=== PATIENT | male | born 1950 | race Caucasian/White ===

== ENCOUNTER 2020-02-25 09:52 | Emergency (ER) | payer OTHER ==
--- OUTSIDE RECORDS SUMMARY | 2020-02-25 09:54 | XMS REPORT | Continuity of Care Document ---
:1950 Author Organization [facility] t Address [address] [place] [address] [place] [address] Care Team Providers Name Role Phone Ganesh Romo MD Primary Care Physician Doctor Unassigned, Name Attending Clinician Unavailable Grant A[place] Attending Clinician HUNTER MINER Attending Clinician Unavail able HUNTER MINER Admitting Clinician Unavail able Problems Condition Condition Condition Status Onset Resolution Last Treating Co mments Source Name Details Category Date Date Treatment Clinician Date Back pain Back pain [facility] Stress Stress Disease [facility] ICH ICH Disease Active [facility] (intracere (intracere 11-04 Lori kes - bral bral 00:00: Medical hemorrhage hemorrhage 00 Ce nter ) ) Thalamic Thalamic Disease [facility] Center Uncontroll Uncontroll Disease Active [facility] - hypertensi hypertensi 00:00: Me dical on on 00 Center Type 2 Type [address] [facility] diabetes diabetes 11-04 [facility] - mellitus mellitus 00:00: Medica l 00 Center 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 N.KSaiA. Active Info Not 2015-02 Yonis eric Available 0-03 l 00:00: [place] 00 Family History Family Member Diagnosis Comments Start Date Stop Date Source Unknown Family Family History 2015-11-28 2015-11-28 Memori al [place] Member 02:46:41 02:46:41 Social History Social Habit Start Date Stop Date Quantity Comments Source Sex Assigned At [facility] Tobacco use and exposure 2016-11-04 2016-11-04 Never used [facility] - 00:00:00 00:00:00 [facility] Alcohol intake 2016-11-04 2016-11-04 Current [facility] es - 00:00:00 00:00:00 non-drinker of Medical nter alcohol (finding) PneumoccalVaccine 2015-11-26 2015-11-26 Memoria l 00:00:00 00:00:00 [place] Smoking Status Start Date Stop Date Source Former smoker 2016-11-04 00:00:00 2016-11-04 00:00:00 [facility] Medications Ordered Filled Start Stop Current Ordering Indication Dosage Frequency Signature Comments Components Source Medication Medication Date Date Medication? Clinician (SIG) Name Name SITagliptin Yes 1{tbl} Take [address] -metFORMIN 9-14 tablet by Luke s - (JANUMET) 12:25: mouth 2 Medic al 50-500 mg 33 (two) Center per tablet times daily with breakfast and dinner. losartan Yes 100mg QD Take [address] (COZAAR) 9-14 mg by [facility] - 100 MG 12:25: mouth Medical tablet 33 daily. Center albuterol Yes 4{puff} Inhale [address] HFA 9-14 puffs by [facility] - (VENTOLIN 12:25: mouth via Med ical HFA) 90 33 inhaler Center mcg/actuati every 6 on inhaler (six) hours as needed for Wheezing. glimepiride Yes 4mg Take [address] (AMARYL) 4 9-14 by mouth 2 Xochilt es - MG tablet 12:25: (two) Medical 33 times Center daily before meals. simvastatin 2015-02 Yes MAKAYLA 1 tab(s) Memoria 0-05 SAJI l 02:46: [place] 41 Janumet 2015-02 Yes MAKAYLA 1 tab(s) M emoria 0-05 SAJI l 02:46: [place] 41 losartan 2015-02 Yes MAKAYLA 1 tab(s) Memoria 0-05 SAJI l 02:46: [place] 41 glimepiride 2015-02 Yes MAKAYLA 1 tab(s) Memoria 0-05 SAJI l 02:46: [place] 41 Invokana 2015-02 Yes MAKAYLA 1 tab(s) Memoria 0-05 SAJI l 02:46: [place] 41 Plavix 2015-02 Yes MAKAYLA 1 tab(s) Me moria 0-05 SAJI l 02:46: [place] 41 Vital Signs Vital Name Observation Time Observation Value Comments Source Weight 2015-11-26 20:00:00 [facility] Diastolic (mm Hg) 2015-11-26 20:00:00 Mem oridat Haas Systolic (mm Hg) 2015-11-26 20:00:00 Yonis Haas Procedures This patient has no known procedures. Encounters Start End Encounter Admission Attending Care Care Encounter Source Date/Time Date/Time Type Type Clinicians Facility Department ID 2020-01-08 2020-01-08 Orders Doctor TRAYLOR [id number] 00:00:00 00:00:00 Only Unassigned, CAMACHO [id number] [facility] [id number] [id number] 2019-12-27 2019-12-27 Orders Doctor TRAYLOR [id number] 00:00:00 00:00:00 Only Unassigned, [place]ACH[place] [id number] [facility] [id number] 2019-11-30 2019-11-30 Office Burns [facility] [id number] 11:04:29 11:41:15 Visit Nanci Lee [id number] Bin [id number] S[place] [id number] [facility] 220 [facility] 2019-11-30 2019-11-30 Orders Doctor LAYTON [id number] 00:00:00 00:00:00 Only Unassigned, [place] [id number] [place] [facility] [id number] 2015-11-26 2015-11-26 Outpatient Makayla Makayla [id number] [facility] 15:00:00 15:00:00 B Saji Lennon MD, MD Results Test Description Test Time Test Comments Results Result Comments Source POCT-GLUCOSE METER 2016-11-06 07:54:00 Test Item Value Reference Range Interpretation Comme [facility] POC-GLUCOSE METER (BEAKER) (test 194 mg/dL 70-110 H TESTED AT [facility] [address] [facility] code = 1538) [facility] 7703 0 CBC W/PLT COUNT & AUTO [id number] 05:12:00 Test Item Value Reference Range Interpretation Comments WHITE BLOOD CELL COUNT (BEAKER) 6.0 K/ L 3.5-10.5 (test code = 775) RED BLOOD CELL COUNT (BEAKER) 4.79 M/ L 4.63-6.08 (test code = 761) HEMOGLOBIN (BEAKER) (test code = 14.4 GM/DL 13.7-17.5 410) HEMATOCRIT (BEAKER) (test code = 43.0 % 40.1-51.0 411) MEAN CORPUSCULAR VOLUME (BEAKER) 89.8 fL 79.0-92.2 (test code = 753) MEAN CORPUSCULAR HEMOGLOBIN 30.1 pg 25.7-32.2 (BEAKER) (test code = 751) MEAN CORPUSCULAR HEMOGLOBIN CONC 33.5 GM/DL 32.3-36.5 (BEAKER) (test code = 752) RED CELL DISTRIBUTION WIDTH 12.6 % 11.6-14.4 (BEAKER) (test code = 412) PLATELET COUNT (BEAKER) (test 160 K/CU MM 150-450 code = 756) MEAN PLATELET VOLUME (BEAKER) 11.4 fL 9.4-12.4 (test code = 754) NUCLEATED RED BLOOD CELLS 0 /100 WBC 0-0 (BEAKER) (test code = 413) NEUTROPHILS RELATIVE PERCENT 65 % (BEAKER) (test code = 429) LYMPHOCYTES RELATIVE PERCENT 23 % (BEAKER) (test code = 430) MONOCYTES RELATIVE PERCENT 9 % (BEAKER) (test code = 431) EOSINOPHILS RELATIVE PERCENT 3 % (BEAKER) (test code = 432) BASOPHILS RELATIVE PERCENT 1 % (BEAKER) (test code = 437) NEUTROPHILS ABSOLUTE COUNT 3.86 K/ L 1.78-5.38 (BEAKER) (test code = 670) LYMPHOCYTES ABSOLUTE COUNT 1.34 K/ L 1.32-3.57 (BEAKER) (test code = 414) MONOCYTES ABSOLUTE COUNT (BEAKER) 0.55 K/ L 0.30-0.82 (test code = 415) EOSINOPHILS ABSOLUTE COUNT 0.15 K/ L 0.04-0.54 (BEAKER) (test code = 416) BASOPHILS ABSOLUTE COUNT (BEAKER) 0.03 K/ L 0.01-0.08 (test code = 417) IMMATURE GRANULOCYTES-RELATIVE 0 % 0-1 PERCENT (BEAKER) (test code = 2801) [id number] 05:02:00 Test Item Value Reference Range Interpretation Comments PHOSPHORUS (BEAKER) (test code = 2.4 mg/dL 2.3-4.7 604) [id number] 05:02:00 Test Item Value Reference Range Interpretation Comments MAGNESIUM (BEAKER) (test code = 2.0 mg/dL 1.6-2.6 627) BASIC METABOLIC [id number] 05:02:00 Test Item Value Reference Range Interpretation Comments SODIUM (BEAKER) 139 meq/L 136-145 (test code = 381) POTASSIUM (BEAKER) 3.4 meq/L 3.5-5.1 L (test code = 379) CHLORIDE (BEAKER) 107 meq/L 98-107 (test code = 382) CO2 (BEAKER) (test 23 meq/L 22-29 code = 355) BLOOD UREA NITROGEN 9 mg/dL 7-21 (BEAKER) (test code = 354) CREATININE (BEAKER) 0.72 mg/dL 0.57-1.25 (test code = 358) GLUCOSE RANDOM 166 mg/dL 70-105 H ([facility]) (test code = 652) CALCIUM ([facility]) 9.1 mg/dL 8.4-10.2 (test code = 697) EGFR ([facility]) (test 109 mL/min/1.73 ESTIM ATED GFR IS code = 1092) sq m NOT ACCURATE CREATININE CLEARANCE IN PREDICTING GLOMERULAR FILTRATION RATE . ESTIMATED GFR I S NOT APPLICABLE FOR DIALYSIS PATIEN TS. POCT-GLUCOSE [id number] 00:42:00 Test Item Value Reference Range Interpretation Comments POC-GLUCOSE METER 147 mg/dL 70-110 H TESTED AT [place] [address] ([facility]) (test code = [facility] 1538) [id number] POCT-GLUCOSE [id number] 00:42:00 Test Item Value Reference Range Interpretation Comments POC-GLUCOSE METER 173 mg/dL 70-110 H TESTED AT [place] [address] ([facility]) (test code = [facility] 1538) [id number] POCT-GLUCOSE [id number] 17:04:00 Test Item Value Reference Range Interpretation Comments POC-GLUCOSE METER 200 mg/dL 70-110 H TESTED AT [place] [address] ([facility]) (test code = [facility] 1538) [address] HEMOGLOBIN [id number] 16:58:00 Test Item Value Reference Range Interpretation Comments HEMOGLOBIN A1C ([facility]) (test code = 7.3 % 4.3-6.1 H 368) POCT-GLUCOSE [id number] 12:15:00 Test Item Value Reference Range Interpretation Comments POC-GLUCOSE METER 189 mg/dL 70-110 H TESTED AT [place] [address] ([facility]) (test code = [facility] 1538) [id number] CBC W/PLT COUNT & AUTO [id number] 08:58:00 Test Item Value Reference Range Interpretation Comments WHITE BLOOD CELL COUNT ([facility]) 5.5 K/ L 3.5-10.5 (test code = 775) RED BLOOD CELL COUNT ([facility]) 4.74 M/ L 4.63-6.08 (test code = 761) HEMOGLOBIN ([facility]) (test code = 14.8 GM/DL 13.7-17.5 410) HEMATOCRIT ([facility]) (test code = 42.4 % 40.1-51.0 411) MEAN CORPUSCULAR VOLUME (BEAKER) 89.5 fL 79.0-92.2 (test code = 753) MEAN CORPUSCULAR HEMOGLOBIN 31.2 pg 25.7-32.2 (BEAKER) (test code = 751) MEAN CORPUSCULAR HEMOGLOBIN CONC 34.9 GM/DL 32.3-36.5 (BEAKER) (test code = 752) RED CELL DISTRIBUTION WIDTH 12.9 % 11.6-14.4 (BEAKER) (test code = 412) PLATELET COUNT (BEAKER) (test 200 K/CU MM 150-450 code = 756) MEAN PLATELET VOLUME (BEAKER) 11.0 fL 9.4-12.4 (test code = 754) NUCLEATED RED BLOOD CELLS 0 /100 WBC 0-0 (BEAKER) (test code = 413) NEUTROPHILS RELATIVE PERCENT 72 % (BEAKER) (test code = 429) LYMPHOCYTES RELATIVE PERCENT 16 % (BEAKER) (test code = 430) MONOCYTES RELATIVE PERCENT 9 % (BEAKER) (test code = 431) EOSINOPHILS RELATIVE PERCENT 3 % (BEAKER) (test code = 432) BASOPHILS RELATIVE PERCENT 1 % (BEAKER) (test code = 437) NEUTROPHILS ABSOLUTE COUNT 3.95 K/ L 1.78-5.38 (BEAKER) (test code = 670) LYMPHOCYTES ABSOLUTE COUNT 0.89 K/ L 1.32-3.57 L (BEAKER) (test code = 414) MONOCYTES ABSOLUTE COUNT (BEAKER) 0.49 K/ L 0.30-0.82 (test code = 415) EOSINOPHILS ABSOLUTE COUNT 0.14 K/ L 0.04-0.54 (BEAKER) (test code = 416) BASOPHILS ABSOLUTE COUNT (BEAKER) 0.03 K/ L 0.01-0.08 (test code = 417) IMMATURE GRANULOCYTES-RELATIVE 1 % 0-1 PERCENT (BEAKER) (test code = 2801) CT BRAIN WITHOUT IV CONTRAST - [id number] 07:14:00Reason for exam:->L-thalamic ICHFINAL REPORT CT head without contrast INDICATION: Left thalamic intracranial hemorrhage. TECHNIQUE: Contiguous axial images through the head without contrast on the portable CT un it. This exam was performed according to our departmental dose optimization program which includes automated exposure control, adjustment of the mA and/or kV according to patient size and/or use of iterative reconstruction technique. COMPARISON: None available FINDINGS:There is anteromedial left thalamic hyperdensity measuring up to 1.4 cm in keeping with hemorrhage. A thin rim of surrounding edema is suspected, but no remarkable mass effect is evident. There is nonspecific white matter hypoattenuation in keeping with microvascular ischemia with age indeterminate changes. Please note that CT is insensitive for early or small infarcts. Generalized volume loss and vascular calcifications are noted. There is no hydrocephalus or midline shift. There is minimal chronic sinus mucosal thickening. The mastoid air cells and orbits are unremarkable. The calvarium is intact. IMPRESSION: Left thalamic smallvolume hyperdense focus in keeping with hemorrhage, without remarkable mass effect. Comparison with recent imaging or short term CT follow up is advised to assess stability. Findings discussed with (neuro ICU) at 7:10 AM Signed: Denae Avila MDReport Verified Date/Time: 11/05/201607:14:49 Reading Location: [address] Neuro Reading Room POCT-GLUCOSE [id number] 06:25:00 Test Item Value Reference Range Interpretation Comments POC-GLUCOSE METER 194 mg/dL 70-110 H TESTED AT [facility] [address] (BEAKER) (test code = BRITT[place] 1538) [id number] 04:35:00 Test Item Value Reference Range Interpretation Comments PHOSPHORUS (BEAKER) (test code = 2.4 mg/dL 2.3-4.7 604) Once on admission and Daily AM afterwardsOnce on admission and Daily AM afterwardsOnce on admission and Daily AM [id number] 04:35:00 Test Item Value Reference Range Interpretation Comments MAGNESIUM (BEAKER) (test code = 1.9 mg/dL 1.6-2.6 627) Once on admission and Daily AM afterwardsOnce on admission and Daily AM afterwardsOnce on admission and Daily AM afterwardsBASIC METABOLIC PANEL 2016-11-05 04:35:00 Test Item Value Reference Range Interpretation Comments SODIUM (BEAKER) 139 meq/L 136-145 (test code = 381) POTASSIUM (BEAKER) 3.6 meq/L 3.5-5.1 (test code = 379) CHLORIDE (BEAKER) 106 meq/L 98-107 (test code = 382) CO2 (BEAKER) (test 27 meq/L 22-29 code = 355) BLOOD UREA NITROGEN 10 mg/dL 7-21 (BEAKER) (test code = 354) CREATININE (BEAKER) 0.76 mg/dL 0.57-1.25 (test code = 358) GLUCOSE RANDOM 184 mg/dL 70-105 H (BEAKER) (test code = 652) CALCIUM (BEAKER) 8.9 mg/dL 8.4-10.2 (test code = 697) EGFR (BEAKER) (test 102 mL/min/1.73 ESTIM ATED GFR IS code = 1092) sq m NOT ACCURATE CREATININE CLEARANCE IN PREDICTING GLOMERULAR FILTRATION RATE . ESTIMATED GFR I S NOT APPLICABLE FOR DIALYSIS PATIEN TS. Once on admission and Daily AM afterwardsOnce on admission and Daily AM afterwardsOnce on admission and Daily AM afterwardsPOCT-GLUCOSE [id number] 00:30:00 Test Item Value Reference Range Interpretation Comments POC-GLUCOSE METER 204 mg/dL 70-110 H TESTED AT [facility] 67[address] ([facility]) (test code = BR[place] 1538) [id number] PROTHROMBIN [id number] 19:35:00 Test Item Value Reference Range Interpretation Comments PROTIME (BEAKER) (test code = 16.6 seconds 11.7-14.7 H 759) INR (BEAKER) (test code = 370) 1.4 <=5.9 RECOMMENDED COUMADIN/WARFARIN INR THERAPY RANGESSTANDARD DOSE: 2.0 - 3.0 Includes: PROPHYLAXIS forvenous thrombosis, systemic embolization; TREATMENT for venous thrombosis and/or pulmonary embolus.HIGH RISK: Target INR is 2.5-3.5 for patients with mechanical heart valves.[id number] 19:35:00 Test Item Value Reference Range Interpretation Comments PARTIAL THROMBOPLASTIN TIME 29.2 seconds 22.5-36.0 (BEAKER) (test code = 760) HEPATIC FUNCTION [id number] 19:17:00 Test Item Value Reference Range Interpretation Comments TOTAL PROTEIN (BEAKER) (test code = 7.5 gm/dL 6.0-8.3 770) ALBUMIN (BEAKER) (test code = 1145) 4.2 g/dL 3.5-5.0 BILIRUBIN TOTAL (BEAKER) (test code 0.7 mg/dL 0.2-1.2 = 377) BILIRUBIN DIRECT ([facility]) (test 0.3 mg/dL 0.1-0.5 code = 706) ALKALINE PHOSPHATASE ([facility]) (test 96 U/L 40-150 code = 346) AST (SGOT) (BEAKER) (test code = 21 U/L 5-34 353) ALT (SGPT) (BEAKER) (test code = 25 U/L 6-55 347)
--- OUTSIDE RECORDS SUMMARY | 2020-02-25 09:54 | XMS REPORT | Continuity of Care Document ---
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 Ganglion Active Problem 11/28/2015 Mkaayla cyst of [place] finger of left hand Medications Medication Details Route Status Patient Ordering Order Source Instructions Provider Date simvastatin 1 tab(s) orally Active 10 mg orally WILLIAM Claire lotte once a day (at [place] bedtime) Janumet 1 tab(s) orally Active 500 mg-50 mg WILLIAM Thrashert e orally 2 times William a day losartan 1 tab(s) orally Active 100 mg orally WILLIAM Clairelo tte once a day William glimepiride 1 tab(s) orally Active 2 mg orally WILLIAM Clairel gigi once a day William Invokana 1 tab(s) orally Active 300 mg orally WILLIAM Clairelo tte once a day William Plavix 1 tab(s) orally Active 75 mg orally WILLIAM Thrashert e once a day William Allergies, Adverse Reactions, Alerts Substance Category Reaction Severity Reaction Status Date Comments S ource type Reported N.K.D.A. Adverse Info Not Adverse Active Alethea reyes Reaction Available Reaction 6 Catrachito igor Immunizations No Data Provided for This Section Results No Data Provided for This Section Pathology Reports No Data Provided for This Section Diagnostic Reports No Data Provided for This Section Consultation Notes No Data Provided for This Section Discharge Summaries No Data Provided for This Section History and Physicals No Data Provided for This Section Vital Signs Vital Sign Value Date Comments Source Weight 195 11/26/2015 Makayla Degroot nder Diastolic (mm Hg) 79 11/26/2015 Makaylaeric Lennon Systolic (mm Hg) 134 11/26/2015 Makayla sethi Encounters Location Location Encounter Encounter Reason Attending ADM AR Stat Source Details Type Number For Provider Date Date Visit Makayla Olguin TUMOR [id number] 11/25 11/25 C ramon Lennon THUMB [id number] Summer dunlap MD [id number] Procedures No Data Provided for This Section Assessment and Plan No Data Provided for This Section Plan of Care No Data Provided for This Section Social History Social History Date Source Social History ElementQualifiersDate Reported 11/26/2015 Makayla Lennon Pneumoccal Vaccine . Have you had a Pneumoccal Vaccine No Nov 26, 2015 Do you live alone? . No Nov 26, 2015 Flu Shot: . Yes Nov 26, 2015 Mammogram in last year: . N/A Nov 26, 2015 Dominant Hand . What is your dominant hand Right Nov 26, 2015 Bone Density: . Have you had a bone density test? When No Nov 26, 2015 Mold Car Pusher of an elderly or disabled person: . No Nov 26, 2015 Had a fall in the last year: . Have you had a fall in the last year? No Nov 26, 2015 Marital Status . Status Nov 26, 2015 Tobacco use . Status: Current, What type? Cigars Nov 26, 2015 alcohol . Alcohol Seldom Nov 26, 2015 Family History Value Date Source QualifierDescriptionCommentDate Reported 11/28/2015 Makayla Lennon Mother alive Comment not available Nov 26, 2015 Children Comment not available Nov 26, 2015 How many brothers Comment not available Nov 26, 2015 Father colon cancer Nov 26, 2015 How many sisters Comment not available Nov 26, 2015 Children boys Comment not available Nov 26, 2015 Siblings Comment not available Nov 26, 2015 Children girls Comment not available Nov 26, 2015 Other Comment not available Nov 26, 2015 Advance Directives No Data Provided for This Section Functional Status No Data Provided for This Section
--- OUTSIDE RECORDS SUMMARY | 2020-02-25 09:54 | XMS REPORT | Clinical Summary ---
:1950 Author Organization [facility] Address [address] [place] [address] Care Team Providers Name Role Phone Timo Romo MD Primary Care Provider Allergies No Known Allergies Medications Medication Sig Dispensed Refills Start Date End Date Status SITagliptin-metFORMIN Take 1 tablet by 0 Active (JANUMET) 50-500 mg mouth 2 (two) times per tablet daily with breakfast and dinner. losartan (COZAAR) 100 Take 100 mg by 0 Active MG tablet mouth daily. albuterol HFA Inhale 4 puffs by 0 Active (VENTOLIN HFA) 90 mouth via inhaler mcg/actuation inhaler every 6 (six) hours as needed for Wheezing. glimepiride (AMARYL) Take 4 mg by mouth 0 Active 4 MG tablet 2 (two) times daily before meals. Active Problems Problem Noted Date Back pain 11/05/2016 Stress 11/05/2016 ICH (intracerebral hemorrhage) 11/04/2016 Thalamic hemorrhage 11/04/2016 Uncontrolled hypertension 11/04/2016 Type 2 diabetes mellitus 11/04/2016 Social History Tobacco Use Types Packs/Day Years Used Date Former Smoker Smokeless Tobacco: Never Used Alcohol Use Drinks/Week oz/Week Comments No Sex Assigned at Date Recorded Not on file Last Filed Vital Signs Not on file Plan of Treatment Not on file Results Not on fileafter 02/24/2019 Insurance Payer Benefit Plan / Subscriber ID Effective Phone Address T ype Group Dates MEDICARE MEDICARE A B [id number] [place] [employer] INDEMNITY [id number] 2014-Nelli [phone] [address] [place] [id number] [place] [address] Advance Directives For more information, please contact: [phone] Code Status Date Activated Date Inactivated Comments Full Code 11/04/2016 4:52 PM 11/06/2016 2:25 PM This code status was determined by: Patient
--- OUTSIDE RECORDS SUMMARY | 2020-02-25 09:55 | XMS REPORT | Summary of Care ---
:1950 Author Organization [facility] - Health Address [address] [place] [address] Care Team Providers Name Role Phone Norbertoashwini Richardson Primary Care Provider Encounter Details Date Type Department Care Team Description 01/08/2020 Orders Only [facility] Doctor Unassigned, No [address] [facility] Name [place] [phone] [place] [address] Allergies No Known Allergiesdocumented as of this encounter (statuses as of 01/26/2020) Medications Medication Sig Dispensed Refills Start Date End Date Status traMADOL (ULTRAM) 50 TAKE 1 TABLET BY 2 09/10/2015 Active mg tablet MOUTH AT BEDTIME NEEDED omeprazole (PRILOSEC) Take 20 mg by 3 08/28/2015 Active 20 mg capsule mouth as needed. Blood-Glucose Meter Use as directed. 1 Kit 0 03/13/2017 Active (ONETOUCH ULTRA2) Kit DX:E11.9, TID lancets (ONE TOUCH Use as directed, 100 Each 1 03/31/2018 Active DELICA) 33 gauge Misc once daily, DX:E11.9 pioglitazone 15 mg Take 1 tablet by 90 tablet 3 04/20/2019 Active tabletIndications: mouth daily. Type 2 diabetes mellitus with vascular disease blood sugar Use as directed, 300 Strip 1 04/20/2019 Active diagnostic (ONETOUCH TID, DX:E11.9 ULTRA TEST) stripIndications: Type 2 diabetes mellitus with vascular disease clopidogreL 75 mg Take 1 tablet by 30 tablet 0 04/20/2019 Active tabletIndications: mouth daily. TIA (transient ischemic attack) SITagliptin-metformin Take 1 tablet by 180 tablet 3 04/20/2019 Active (JANUMET XR) 50-500 mouth 2 (two) mg [id number]: times daily. Type 2 diabetes mellitus with vascular disease amLODIPine 10 mg Take 10 mg by 0 02/07/2019 Active tablet mouth daily. mupirocin 2 % Apply to surgical 22 g 1 05/10/2019 Active ointmentIndications: wound with Neoplasm of uncertain dressing changes behavior of skin of twice a day back glipiZIDE 5 mg Take 1 tablet by 270 tablet 1 11/09/2019 Active tabletIndications: mouth with Type 2 diabetes breakfast and 2 mellitus with tablets with vascular disease dinner. losartan 50 mg Take 1 tablet by 90 tablet 1 11/30/2019 Active tabletIndications: mouth daily. Essential hypertension documented as of this encounter (statuses as of 01/26/2020) Active Problems Problem Noted Date Dyslipidemia 01/30/2016 Essential hypertension 10/31/2015 HLD (hyperlipidemia) 10/31/2015 Type 2 diabetes mellitus with vascular disease 016 documented as of this encounter (statuses as of 01/26/2020) Social History Tobacco Use Types Packs/Day Years Used Date Current Some Day Smoker Cigars Smokeless Tobacco: Never Used Comments: Occasional Cigar Smoker Alcohol Use Drinks/Week oz/Week Comments Yes 0 Standard drinks or equivalent 0.0 Social Drinker Sex Assigned at Date Recorded Not on file documented as of this encounter Last Filed Vital Signs Not on filedocumented in this encounter Plan of Treatment Date Type Specialty Care Team Description 05/01/2020 Office Visit Endocrinology Diabetes & Brian Burns MD Metabolism [address] [place], [place] [phone] 05/07/2020 Office Visit Dermatology Magda Dowell MD [address] [place] [phone] Health Maintenance Due Date Last Done Comments HEPATITIS C (HCV) SCREEN 1950 EYE EXAM 10/04/1959 DTaP,Tdap,and Td Vaccines 1968 (1 - Tdap) COLON CANCER SCREENING 10/04/1999 ANNUAL FIT/FOBT COLON CANCER SCREENING FIT 10/04/1999 DNA EVERY 3 YEARS COLON CANCER SCREENING 10/04/1999 SIGMOIDOSCOPY EVERY 5 YEARS COLONOSCOPY 10/04/1999 Colorectal Cancer Screening 10/04/1999 Zoster Recombinant Vaccine 10/04/1999 (SHINGRIX) (1 of 2) LUNG CANCER SCREEN: 2004 Recommended for age 55-80 with 30 + pack year history Medicare Wellness Visit 2014 PNEUMOCOCCAL VACCINES 65+ 2014 (1 of 1 - PPSV23) CREATININE (SERUM) 04/20/2020 04/20/2019, 05/23/2016, 01/28/2016 FOOT EXAM 04/20/2020 04/20/2019, 04/20/2019, 06/01/2018, Additional history exists LDL-C 04/20/2020 04/20/2019, 05/23/2016, 01/28/2016 Depression Screening 05/03/2020 05/04/2019 HgA1C 05/30/2020 11/30/2019, 08/16/2019, 04/20/2019, Additional history exists URINE MICROALBUMIN 08/15/2020 05/23/2016, 01/28/2016 Postpo k[place] from 05/23/2017 (Refu sed) INFLUENZA VACCINE (#1) 2020 Postponed from 10/25/2019 (Pare nt Refused) documented as of this encounter Procedures Procedure Name Priority Date/Time Associated Diagnosis Comme nts AUTHORIZATION FOR RELEASE Routine 01/08/2020 12:01 AM OF [place] ADMINISTRATOR documented in this encounter Results Not on filedocumented in this encounter Insurance Payer Benefit Plan / Subscriber ID Effective Dates Phone Addre ss Type Group JERED DECKER [id number] 2019-Prese Medicare Adv PLUS PLUS CHOICE nt HMO/POS documented as of this encounter
[2020-02-25 10:36] LABS: Absolute Lymphocytes (CBC) 0.4 K/uL (0.7-4.9); Basophils % 0.3 % (0-1.3); Hematocrit 42.1 % (39.6-49.0); Lymphocytes % 3.5 % (15.3-44.8); MPV 9.4 fL (7.6-11.3); RBC Red Blood Cell Count 4.66 M/uL (4.33-5.43)
[2020-02-25] MEDS ORDERED: LIDOCAINE 1% MPF 5 ML VIAL ONE (10:39)
[2020-02-25] MEDS ORDERED: NA CHLORIDE 0.9% 1,000 ML ONE (10:39)
[2020-02-25 10:45] LABS: Protime INR 1.13
--- NOTE | 2020-02-25 10:51 | RAD REPORT ---
EXAM DESCRIPTION: RAD - Shoulder Right 2 View - 02/25/2020 10:46 am CLINICAL HISTORY: Right shoulder pain FINDINGS: No fracture is seen. Anterior humeral dislocation
--- NOTE | 2020-02-25 10:52 | RAD REPORT ---
EXAM DESCRIPTION: RAD - Humerus Right - 02/25/2020 10:46 am CLINICAL HISTORY: Right arm pain status post fall FINDINGS: No fracture is seen. Anterior humeral head dislocation
--- NOTE | 2020-02-25 10:54 | RAD REPORT ---
EXAM DESCRIPTION: Enoch Single View02/25/2020 10:46 am CLINICAL HISTORY: Chest pain COMPARISON: 2016 FINDINGS: The lungs appear clear of acute infiltrate. The heart is normal size. Anterior right humeral head dislocation
--- NOTE | 2020-02-25 11:12 | RAD REPORT ---
EXAM DESCRIPTION: CT - Head Brain Wo Cont - 02/25/2020 10:54 am CLINICAL HISTORY: Head injury status post fall. Headache COMPARISON: 2019 TECHNIQUE: Computed axial tomography of the head was obtained. IV contrast was not requested. All CT scans are performed using dose optimization technique as appropriate and may include automated exposure control or mA/KV adjustment according to patient size. FINDINGS: Right supraorbital swelling. An intracranial bleed is not seen . The ventricles are normal in caliber. No extra-axial fluid collection is noted. Mild to moderate low-density areas within periventricular, deep and subcortical white matter likely r epresent ischemic changes secondary to small vessel disease. Fluid within the sinuses/ mastoids is not seen. IMPRESSION: No acute intracranial abnormality is seen. If patient's symptoms persist MRI of the bra in would be recommended.
[2020-02-25 11:36] LABS: ALT/SGPT 36 U/L (12-78); AST/SGOT 37 U/L (15-37); Albumin 4.2 g/dL (3.4-5.0); Alkaline Phosphatase 81 U/L (45-117); BUN Blood Urea Nitrogen 12 mg/dL (7-18); Bicarbonate 23 mmol/L (21-32); Bilirubin Direct 0.1 mg/dL (0-0.2); Bilirubin Total 0.6 mg/dL (0.2-1.0); Glucose Level 222 mg/dL (74-106); Magnesium 1.9 mg/dL (1.8-2.4); NT PRO-BNP 60 pg/mL (<125); Potassium 3.6 mmol/L (3.5-5.1); Protein, Total 8.1 g/dL (6.4-8.2); Sodium Level 138 mmol/L (136-145); Troponin (Emerg Dept Use Only) < 0.02 ng/mL (0.0-0.045)
[2020-02-25 11:39] LABS: Creatine Phosphokinase 1164 U/L (39-308)
[2020-02-25 12:34] LABS: Blood Morphology Comment NOT SEEN (NOT SEEN); Platelet Estimate ADEQ; White Blood Cell Scan OK (OK)
--- NOTE | 2020-02-25 13:27 | RAD REPORT ---
EXAM DESCRIPTION: RAD - Shoulder Right 2 View - 02/25/2020 12:43 pm CLINICAL HISTORY: Right shoulder pain FINDINGS: Anterior right humeral dislocation. No fracture is seen
--- NOTE | 2020-02-25 14:54 | ER ---
Nurse's Notes [facility] Name: Mp Almonte Age: 69 yrs Sex: Male : 1950 Arrival Date: 02/25/2020 Time: 09:55 Bed 20 Private MD: Diagnosis: Alcohol abuse;Fall on same level from slipping, tripping and stumbling;Unspecified injury of head;Laceration without foreign body of right eyelid and periocular area;Unspecified dislocation of right shoulder joint;Rhabdomyolysis Presentation: 02/24 10:06 Chief complaint: Patient states: Awoke passed out in his hallway this morning. Cant ll1 remember when he fell. Thinks he might have tripped over his 's workout equipment in the hallway. + LOC. Laceration R eyebrow, abrasion to nose. RUE pain with movement. Coronavirus screen: Client denies travel out of the [place] in the last 14 days. At this time, the client does not indicate any symptoms associated with coronavirus-19. Ebola Screen: Patient denies travel to an Ebola-affected area in the 21 days before illness onset. Mechanism of Injury: The problem was sustained at home, resulted from a fall. Initial Sepsis Screen: Does the patient meet any 2 criteria? No. Patient's initial sepsis screen is negative. Does the patient have a suspected source of infection? Yes: Skin breakdown/wound. Risk Assessment: Do you want to hurt yourself or someone else? Patient reports no desire to harm self or others. Onset of symptoms was February 24, 2020. 10:06 Method Of Arrival: Ambulatory ll1 10:06 Acuity: AUTUMN 2 ll1 Triage Assessment: 15:00 General: Appears in no apparent distress. Behavior is calm, cooperative, appropriate ll1 for age. Pain: Complains of pain in right shoulder Quality of pain is described as aching, Aggravated by increased activity. 15:00 Neuro: Level of Consciousness is awake, alert, Oriented to person, place, time, ll1 situation, Appropriate for age Scientific Recruiter are equal bilaterally Moves all extremities. Full function Gait is steady, Speech is normal, Facial symmetry appears normal, Reports a syncopal episode Denies dizziness, headache. Historical: - Allergies: 10:09 No Known Allergies; ll1 - PMHx: 10:09 hemorrhoids; High Cholesterol; Hypertension; Diabetes - NIDDM; ll1 - PSHx: 10:09 hemorrhoids; ll1 - Immunization history:: Flu vaccine is not up to date. - Social history:: Smoking status: Patient reports the use of cigarette tobacco products, denies chronic smoking, but will smoke occasionally, cigars. Screenin:09 Abuse screen: Denies threats or abuse. Nutritional screening: No deficits noted. ll1 Tuberculosis screening: No symptoms or risk factors identified. Fall Risk Fall in past 12 months (25 points). IV access (20 points). Mental Status- Overestimates/Forgets Limitations (15 pts.). Total Thakkar Fall Scale indicates High Risk Score (45 or more points). Fall prevention measures have been instituted. Side Rails Up X 2 Frequent Obs/Assessments Occuring As available patient and family educated on Fall Prevention Program and Strategies. Assessment: 10:06 General: Appears uncomfortable, Behavior is calm, cooperative, appropriate for age. ll1 Pain: Complains of pain in RUE Quality of pain is described as aching, Pain began 1 day ago. Aggravated by increased activity. Neuro: Level of Consciousness is awake, alert, obeys commands, Oriented to person, place, time, situation, Appropriate for age Scientific Recruiter are equal bilaterally Moves all extremities. Full function Gait is steady, Speech is normal, Facial symmetry appears normal, Reports a syncopal episode. Cardiovascular: No deficits noted. Respiratory: No deficits noted. GI: No deficits noted. Derm: 2 <2 cm lacerations to R eyebrow, dried blood noticed all over face. Musculoskeletal: Circulation, motion, and sensation intact. Capillary refill < 3 seconds, Range of motion: limited in right shoulder Tenderness present in R shoulder Reports pain in R shoulder. Injury Description: Head injury Bruise trip and fall with + LOC. 11:00 Reassessment: No changes from previously documented assessment. Patient and/or family ll1 updated on plan of care and expected duration. Pain level reassessed. 12:00 Reassessment: No changes from previously documented assessment. Patient and/or family ll1 updated on plan of care and expected duration. Pain level reassessed. Patient is alert, oriented x 3, equal unlabored respirations, skin warm/dry/pink. 13:00 Reassessment: No changes from previously documented assessment. Patient and/or family ll1 updated on plan of care and expected duration. Pain level reassessed. 14:00 Reassessment: No changes from previously documented assessment. Patient and/or family ll1 updated on plan of care and expected duration. Pain level reassessed. Patient is alert, oriented x 3, equal unlabored respirations, skin warm/dry/pink. 15:00 Reassessment: No changes from previously documented assessment. Patient and/or family ll1 updated on plan of care and expected duration. Pain level reassessed. Patient is alert, oriented x 3, equal unlabored respirations, skin warm/dry/pink. Vital Signs: 10:06 BP 145 / 66; Pulse 85; Resp 18; Temp 98.3; Pulse Ox 99% on R/A; Weight 90.72 kg; Height ll1 5 ft. 10 in. (177.80 cm); Pain 6/10; 11:00 BP 141 / 61; Pulse 80; Resp 17; Pulse Ox 99% ; ll1 13:00 BP 133 / 61; Pulse 80; Resp 17; Pulse Ox 99% ; ll1 15:00 BP 141 / 60; Pulse 78; Resp 17; Pulse Ox 99% on R/A; Pain 3/10; ll1 10:06 Body Mass Index 28.70 (90.72 kg, 177.80 cm) ll1 [place] Coma Score: 10:06 Eye Response: spontaneous(4). Verbal Response: oriented(5). Motor Response: obeys ll1 commands(6). Total: 15. ED Course: 09:55 Patient arrived in ED. ll1 10:01 George Trujillo NP is PHCP. pm1 10:01 Juan Manuel Navarro MD is Attending Physician. pm1 10:05 Ishan Morris RN is Primary Nurse. ll1 10:08 Triage completed. ll1 10:09 Arm band placed on Patient placed in an exam room, on a stretcher. ll1 10:10 Patient has correct armband on for positive identification. Bed in low position. Call ll1 light in reach. Side rails up X2. Pulse ox on. NIBP on. 10:10 Inserted saline lock: 22 gauge in left antecubital area, using aseptic technique. Blood ll1 collected. 10:46 XRAY Chest (1 view) In Process Unspecified. EDMS 10:46 Humerus Right XRAY In Process Unspecified. EDMS 10:46 Shoulder Right (2 View) XRAY In Process Unspecified. EDMS 10:54 CT Head Brain wo Cont In Process Unspecified. EDMS 12:44 Shoulder Right (2 View) XRAY In Process Unspecified. EDMS 15:00 Assist provider with reduction. IV discontinued, intact, bleeding controlled, No ll1 redness/swelling at site. Pressure dressing applied. Administered Medications: 10:20 Not Given (UTD): Tetanus-Diphtheria Toxoid Adult 0.5 ml IM once ll1 10:46 Drug: NS 0.9% 1000 ml Route: IV; Rate: 1000 ml; Site: left antecubital; ll1 14:12 Follow up: Response: No adverse reaction; IV Status: Completed infusion; IV Intake: ll1 1000ml 13:13 Drug: Lidocaine (1 %) 5 ml Volume: 5 ml; Route: Infiltration; ll1 15:25 Follow up: Response: No adverse reaction; RASS: Alert and Calm (0) ll1 Intake: 14:12 IV: 1000ml; Total: 1000ml. ll1 Outcome: 15:05 Patient left the ED. ll1 15:05 Discharged to home ambulatory. ll1 15:05 AMA AMA form signed 15:05 Condition: stable 15:05 Discharge instructions given to patient, Instructed on 15:05 Instructed on discharge instructions, follow up and referral plans. medication usage, AMA instruction Demonstrated understanding of instructions, follow-up care, medications, Prescriptions given X 1. Signatures: Dispatcher [employer] EDMS George Trujillo NP MANAGER RN pm1 Ishan Morris RN RN ll1
--- NOTE | 2020-02-25 14:54 | EDPHYS ---
Physician Documentation [facility] Name: Mp Almonte Age: 69 yrs Sex: Male : 1950 Arrival Date: 02/25/2020 Time: 09:55 Bed 20 Private MD: ED Physician Juan Manuel Navarro HPI: 02/24 10:11 This 69 yrs old Male presents to ER via Ambulatory with complaints of Closed pm1 Head Injury-Adult. 10:11 The patient's problem is reported as syncope. Onset: The symptoms/episode pm1 began/occurred last night. Duration: This was a single incident. Context: occurred at home, occurred while the patient was walking, Possible contributing factors include: Patient is known to have ingested ETOH: Beer last night. Associated signs and symptoms: Pertinent positives: Laceration to right eyebrow. Right biceps pain. Severity of symptoms: in the emergency department the symptoms are unchanged. Patient's baseline: Neuro: alert and fully oriented, Motor: no deficits, Ambulation: walks without assistance, The patient has a previous history of CVA. Historical: - Allergies: 10:09 No Known Allergies; ll1 - PMHx: 10:09 hemorrhoids; High Cholesterol; Hypertension; Diabetes - NIDDM; ll1 - PSHx: 10:09 hemorrhoids; ll1 - Immunization history:: Flu vaccine is not up to date. - Social history:: Smoking status: Patient reports the use of cigarette tobacco products, denies chronic smoking, but will smoke occasionally, cigars. ROS: 10:11 Constitutional: Negative for fever, chills, and weight loss, Neck: Negative for injury, pm1 pain, and swelling, Cardiovascular: Negative for chest pain, palpitations, and edema, Respiratory: Negative for shortness of breath, cough, wheezing, and pleuritic chest pain, Abdomen/GI: Negative for abdominal pain, nausea, vomiting, diarrhea, and constipation, Back: Negative for injury and pain. 10:11 MS/extremity: Positive for pain, of the right bicep. 10:11 Skin: Positive for laceration(s), of the middle aspect of right eyebrow. 10:11 Neuro: Positive for loss of consciousness, syncope, Negative for numbness, tingling, weakness. Exam: 11:31 Radiologist reports: Negative for acute findings pm1 11:31 Constitutional: This is a well developed, well nourished patient who is awake, alert, and in no acute distress. 11:31 Neck: Trachea midline, no thyromegaly or masses palpated, and no cervical lymphadenopathy. Supple, full range of motion without nuchal rigidity, or vertebral point tenderness. No Meningismus. Chest/axilla: Normal chest wall appearance and motion. Nontender with no deformity. No lesions are appreciated. 11:31 Skin: Warm, dry with normal turgor. Normal color with no rashes, no lesions, and no evidence of cellulitis. MS/ Extremity: Pulses equal, no cyanosis. Neurovascular intact. Full, normal range of motion. 11:31 Head/face: Noted is no obvious of injury or deformity except abrasion(s), that are mild, of the nose, a laceration(s), that is jagged, 3 cm(s), of the middle aspect of right eyebrow. 11:31 Eyes: Pupils: no acute changes, Extraocular movements: no acute changes, Conjunctiva: normal. 11:31 Cardiovascular: Exam negative for acute changes, Rate: normal, Rhythm: regular, Pulses: no pulse deficits are appreciated, Edema: is not appreciated. 11:31 Respiratory: Exam negative for acute changes, respiratory distress, shortness of breath. 11:31 Abdomen/GI: Exam negative for acute changes, Inspection: abdomen appears normal, Palpation: abdomen is soft and non-tender, in all quadrants. 11:31 Back: Exam negative for acute changes, pain, is absent, normal spinal alignment noted. 11:31 Neuro: Exam negative for acute changes, Orientation: is normal, Mentation: is normal, Motor: is normal, moves all fours, Sensation: is normal, no obvious gross deficits. Vital Signs: 10:06 BP 145 / 66; Pulse 85; Resp 18; Temp 98.3; Pulse Ox 99% on R/A; Weight 90.72 kg; Height ll1 5 ft. 10 in. (177.80 cm); Pain 6/10; 11:00 BP 141 / 61; Pulse 80; Resp 17; Pulse Ox 99% ; ll1 13:00 BP 133 / 61; Pulse 80; Resp 17; Pulse Ox 99% ; ll1 15:00 BP 141 / 60; Pulse 78; Resp 17; Pulse Ox 99% on R/A; Pain 3/10; ll1 10:06 Body Mass Index 28.70 (90.72 kg, 177.80 cm) ll1 Radha Coma Score: 10:06 Eye Response: spontaneous(4). Verbal Response: oriented(5). Motor Response: obeys ll1 commands(6). Total: 15. Procedures: 14:08 Reduction: of the right shoulder, using traction, Immobilized with shoulder pm1 immobilizer. Patient tolerated well. MDM: 10:05 Patient medically screened. eduardo 11:44 Data reviewed: vital signs. pm1 12:15 Data interpreted: Pulse oximetry: on room air is 99 %. Interpretation: normal. pm1 12:15 Counseling: I had a detailed discussion with the patient and/or guardian regarding: the pm1 historical points, exam findings, and any diagnostic results supporting the discharge/admit diagnosis, lab results, radiology results, the need for further work-up and treatment in the hospital. 12:15 Refusal of service: The patient/guardian displays adequate decision making capability pm1 and despite a detailed discussion of alternatives, benefits, risks, and consequences refuses: Admission to the hospital for further work-up and treatment, Patient does not want tot stay in the hospital because he is concerned about his and would like to be at the house when she gets home. 14:08 ED course: Right shoulder reduced by Dr. Navarro. would like patient in shoulder pm1 immobilizer and CT scan right shoulder. 14:50 Refusal of service: The patient/guardian displays adequate decision making capability pm1 and despite a detailed discussion of alternatives, benefits, risks, and consequences refuses: CT Scan, Patient said that he would like to go home now. His right shoulder feels better and he does not want to wait for a CT scan of his shoulder. Explained to the patient again that I would like to keep him in the hospital for further treatment and evaluation but he does not want to stay. 14:55 ED course: Offered to talk to patient's on the phone to update her on findings and pm1 diagnosis but the patient does not want to wait. He said that he is ready to go home now. 02/24 10:09 Order name: Basic Metabolic Panel; Complete Time: 11:43 pm1 02/24 10:09 Order name: CBC with Diff; Complete Time: 13:06 pm1 02/24 10:09 Order name: LFT's; Complete Time: 11:44 pm1 02/24 10:09 Order name: Magnesium; Complete Time: 11:44 pm1 02/24 10:09 Order name: NT PRO-BNP; Complete Time: 11:44 pm1 02/24 10:09 Order name: PT-INR; Complete Time: 10:49 pm1 02/24 10:09 Order name: CT Head Brain wo Cont; Complete Time: 11:31 pm1 02/24 10:09 Order name: Troponin (emerg Dept Use Only); Complete Time: 11:44 pm02/24 10:09 Order name: XRAY Chest (1 view); Complete Time: 11:31 pm02/24 10:11 Order name: CPK; Complete Time: 11:44 pm1 02/24 10:14 Order name: Humerus Right XRAY; Complete Time: 11:31 pm02/24 10:14 Order name: Shoulder Right (2 View) XRAY; Complete Time: 11:31 pm1 02/24 12:12 Order name: ETOH Level; Complete Time: 13:36 pm02/24 12:34 Order name: CBC Smear Scan; Complete Time: 13:06 EDMS 02/24 10:09 Order name: EKG; Complete Time: 10:11 pm02/24 10:09 Order name: Cardiac monitoring; Complete Time: 10:54 pm1 02/24 10:09 Order name: EKG - Nurse/Tech; Complete Time: 10:54 pm1 02/24 10:09 Order name: IV Saline Lock; Complete Time: 10:10 pm02/24 10:09 Order name: Labs collected and sent; Complete Time: 10:10 pm02/24 10:09 Order name: O2 Per Protocol; Complete Time: 10:10 pm02/24 10:09 Order name: O2 Sat Monitoring; Complete Time: 10:10 pm02/24 10:12 Order name: Prolene, Sutures; Complete Time: 13:14 pm02/24 10:12 Order name: Dressing - Wound; Complete Time: 15:25 pm02/24 10:12 Order name: Gloves, Sterile; Complete Time: 13:14 pm1 02/24 12:13 Order name: Shoulder Right (2 View) XRAY; Complete Time: 13:36 pm02/24 10:12 Order name: Setup Suture Tray; Complete Time: 13:14 pm1 02/24 14:09 Order name: Shoulder Immobilizer; Complete Time: 14:11 pm1 Administered Medications: 10:20 Not Given (UTD): Tetanus-Diphtheria Toxoid Adult 0.5 ml IM once ll1 10:46 Drug: NS 0.9% 1000 ml Route: IV; Rate: 1000 ml; Site: left antecubital; 1 14:12 Follow up: Response: No adverse reaction; IV Status: Completed infusion; IV Intake: ll1 1000ml 13:13 Drug: Lidocaine (1 %) 5 ml Volume: 5 ml; Route: Infiltration; ll1 15:25 Follow up: Response: No adverse reaction; RASS: Alert and Calm (0) 1 Disposition: 02/25 07:21 Co-signature as Attending Physician, Juan Manuel Navarro MD I agree with the assessment and eduardo plan of care. Disposition: 02/25/20 14:53 Patient has left against medical advice. Impression: Rhabdomyolysis, Alcohol abuse, Fall on same level from slipping, tripping and stumbling, Unspecified injury of head, Laceration without foreign body of right eyelid and periocular area, Unspecified dislocation of right shoulder joint. - Patients states they are going to Home. - Condition is Undetermined. - Discharge Instructions: Shoulder Dislocation, Head Injury, Adult, Fall Prevention in the Home, Facial Laceration, Rhabdomyolysis, Alcohol Abuse and Nutrition, How to Use a Sling. - Prescriptions for Keflex 500 mg Oral Capsule - take 1 capsule by ORAL route every 12 hours for 10 days; 20 capsule. Follow up: Emergency Department; When: As needed; Reason: Worsening of condition. Follow up: Private Physician; When: 2 - 3 days; Reason: Recheck today's complaints, Continuance of care, Re-evaluation by your physician. - Problem is new. - Symptoms have improved. - Notes: Suture reemoval in 4-5 days Signatures: Dispatcher [employer] EDJuan Manuel Card MD MD cha Marinas, Patrick, CORE ANALYSIS OPERATOR CORE ANALYSIS OPERATOR pm1 Ishan Morris RN RN ll1 Corrections: (The following items were deleted from the chart) 02/24 14:12 12:13 Sling ordered. pm1 ll1 14:55 14:08 CT RIGHT SHOULDER W/O CONTRAST ordered. EDND EDND 15:05 14:53 02/25/2020 14:53 Patients has left against medical advice. Impression: ll1 RhabdomyolysisAlcohol abuse; Fall on same level from slipping, tripping and stumbling; Unspecified injury of head; Laceration without foreign body of right eyelid and periocular area; Unspecified dislocation of right shoulder joint. Patient states they are going to Home. Condition is Undetermined. Follow up: Emergency Department; When: As needed; Reason: Worsening of condition. Follow up: Private Physician; When: 2 - 3 days; Reason: Recheck today's complaints, Continuance of care, Re-evaluation by your physician. Problem is new. Symptoms have improved. pm1
[2020-02-25 15:58] VITALS: BP 145/66; TEMP 98.3; O2SAT 99
--- NOTE | 2020-02-26 15:29 | EKG ---
Test Date: 2020-02-25 Test Time: 10:44:02 Load Test Mechanic: RACQUEL MEASUREMENT RESULTS: Intervals: Rate: 84 OH: 202 QRSD: 98 QT: 404 QTc: 477 [place]: P: 55 [place]: 202 QRS: 95 T: 63 INTERPRETIVE STATEMENTS: Normal sinus rhythm Rightward axis Borderline ECG Compared to ECG 07/24/2017 16:32:06 Right-axis deviation now present Electronically Signed On 02-26-20 15:26:43 DRIVER STARTING GATE by Chester Winchester
== END 2020-02-25 15:05 | disposition left against medical advice (07) ==
LOC: ER 09:52
PROC: 0JQ10ZZ Repair Face Subcutaneous Tissue and Fascia, Open Approach (ICD-10-PCS; principal; 2020-02-25)
DX: S01.111A Laceration without foreign body of right eyelid and periocular area, initial encounter (principal); S43.004A Unspecified dislocation of right shoulder joint, initial encounter; M62.82 Rhabdomyolysis; F10.10 Alcohol abuse, uncomplicated; W18.09XA Striking against other object with subsequent fall, initial encounter; Y93.9 Activity, unspecified; Y92.009 Unspecified place in unspecified non-institutional (private) residence as the place of occurrence of the external cause; I10 Essential (primary) hypertension; F17.290 Nicotine dependence, other tobacco product, uncomplicated; Z23 Encounter for immunization
CPT/HCPCS: 96361; 93005; 85025; 80048; 36415; 80320; 83735; 82550; 85610; 80076; 84484; 83880; 70450; 71045; 73060; 73030 ×2; 96360; 99284; 12013; J7030

== ENCOUNTER 2021-09-22 20:10 | Emergency (ER) | payer OTHER ==
--- NOTE | 2021-09-22 21:02 | RAD REPORT ---
EXAM DESCRIPTION: RAD - Chest Single View - 09/22/2021 8:44 pm CLINICAL HISTORY: FEVER COMPARISON: <Comparisons> FINDINGS: Lines: None. Lungs: No evidence of edema or pneumonia. Pleural: No significant pleural effusions or pneumothorax. Cardiac: The heart size is within normal limits. Bones: No acute fractures. Other: IMPRESSION: No acute cardiopulmonary disease.
[2021-09-22 21:07] LABS: Absolute Lymphocytes (CBC) 0.3 K/uL (0.7-4.9); Hematocrit 40.8 % (39.6-49.0); Lymphocytes % 4.1 % (15.3-44.8); MCV 89.8 fL (80-100); MPV 8.6 fL (7.6-11.3); RBC Red Blood Cell Count 4.54 M/uL (4.33-5.43)
[2021-09-22] MEDS ORDERED: ACETAMINOPHEN 500 MG TAB ONE (21:09)
[2021-09-22 21:17] LABS: Protime INR 1.33
[2021-09-22 21:24] LABS: Albumin 3.6 g/dL (3.4-5.0); Bilirubin Total 0.6 mg/dL (0.2-1.0); Potassium 3.4 mmol/L (3.5-5.1); Protein, Total 7.5 g/dL (6.4-8.2)
--- NOTE | 2021-09-22 23:01 | ER ---
Nurse's Notes [facility] Name: Mp Almonte Age: 70 yrs Sex: Male : 1950 Arrival Date: 09/22/2021 Time: 20:14 Bed 15 Private MD: Diagnosis: SARS-associated coronavirus as the cause of diseases classified elsewhere Presentation: 09/22 20:19 Chief complaint: EMS states: Per patient found standing in restroom lethargic, ke1 Temp 102.8 on EMS arrival. tested recently positive for covid. Coronavirus screen: Vaccine status: Patient reports receiving the 2nd dose of the covid vaccine. Ebola Screen: No symptoms or risks identified at this time. Initial Sepsis Screen: Does the patient meet any 2 criteria? RR > 20 per min. Temp <36.0*C (96.8*F)) or > 38.3*C (100.9*F). Yes Does the patient have a suspected source of infection? No. Patient's initial sepsis screen is negative. Risk Assessment: Do you want to hurt yourself or someone else? Patient reports no desire to harm self or others. Onset of symptoms was September 22, 2021 at 19:45. 20:19 Method Of Arrival: EMS ke1 20:19 Acuity: AUTUMN 3 ke1 Triage Assessment: 20:25 General: Appears in no apparent distress. Behavior is appropriate for age. Pain: Denies ke1 pain. 21:09 Neuro: Level of Consciousness is awake, lethargic, Oriented to person, place, time, ke1 situation. Respiratory: Respiratory effort is even, unlabored, Respiratory pattern is regular, symmetrical. Historical: - Allergies: 20:15 No Known Allergies; ke1 - PMHx: 20:15 Diabetes - NIDDM; hemorrhoids; High Cholesterol; Hypertension; ke1 - Immunization history:: Adult Immunizations. - Social history:: Smoking status: Patient reports the use of cigarette tobacco products, denies chronic smoking, but will smoke occasionally, cigars, Patient uses. Screenin:24 Abuse screen: Denies threats or abuse. Nutritional screening: No deficits noted. ke1 Tuberculosis screening: No symptoms or risk factors identified. 21:09 Fall Risk No fall in past 12 months (0 pts). No secondary diagnosis (0 pts). IV access ke1 (20 points). Ambulatory Aid- None/Bed Rest/Nurse Assist (0 pts). Gait- Normal/Bed Rest/Wheelchair (0 pts) Mental Status- Oriented to own ability (0 pts). Total Thakkar Fall Scale indicates. Assessment: 21:27 Reassessment: No changes from previously documented assessment. ke1 Vital Signs: 20:19 BP 136 / 65; Pulse 81; Resp 25; Temp 101(O); Pulse Ox 97% on R/A; Weight 90.72 kg; ke1 Height 5 ft. 10 in. (177.80 cm); Pain 0/10; 21:27 BP 146 / 60; Pulse 82; Temp 99.9(O); Pulse Ox 96% on R/A; ke1 22:27 BP 150 / 77; Pulse 79; Resp 21; Temp 98.9(O); Pulse Ox 95% on R/A; Pain 0/10; ke1 20:19 Body Mass Index 28.70 (90.72 kg, 177.80 cm) ke1 ED Course: 20:14 Patient arrived in ED. mw2 20:15 Edna Sandhu, JANI is Primary Nurse. ke1 20:16 Liza Barahona FNP-C [facility]. kb 20:16 Sidney Mcnulty MD is Attending Physician. kb 20:24 Triage completed. ke1 20:38 EKG done, by ED staff, reviewed by Liza PARISH COVID swab sent to lab. mh5 20:39 Patient has correct armband on for positive identification. Placed in gown. Bed in low mh5 position. Call light in reach. Side rails up X2. Pillow given. 20:46 Chest Single View XRAY In Process Unspecified. EDMS 21:00 Inserted saline lock: 20 gauge in right antecubital area, using aseptic technique. ke1 23:08 No provider procedures requiring assistance completed. ke1 23:15 IV discontinued. ke1 Administered Medications: 21:04 Drug: Tylenol 1000 mg Route: PO; ke1 22:45 Follow up: Response: Marked relief of symptoms ke1 23:04 Not Given (unavailablee): Bebtelovimab 175 mg IV at calculated rate once; as a single ke1 dose Medication: 23:08 VIS not applicable for this client. ke1 Intake: 21:15 PO: 0ml; Total: 0ml. ke1 Output: 21:15 Urine: 0ml; Total: 0ml. ke1 Outcome: 23:01 Discharge ordered by MD. elizondo 23:15 Discharged to home ambulatory, with family, with ke1 23:15 Condition: good 23:15 Discharge instructions given to patient. 23:50 Patient left the ED. ke1 Signatures: Dispatcher [employer] EDLiza Little, GRADE SETTER-C GRADE SETTER-Sujatha Gomez [facility] Maddy Herring 2 Edna Sandhu RN RN ke1 Corrections: (The following items were deleted from the chart) 21:10 20:25 Pain: Denies pain. ke1 ke1 23:09 20:39 monitoring tech on. Pulse ox on. NIBP on. [facility] ke1
--- NOTE | 2021-09-22 23:01 | EDPHYS ---
Physician Documentation [facility] Name: Mp Almonte Age: 70 yrs Sex: Male : 1950 Arrival Date: 09/22/2021 Time: 20:14 Bed 15 Private MD: ED Physician Sidney Mcnulty HPI: 09/22 21:34 This 70 yrs old Male presents to ER via EMS with complaints of cough, fever. kb 21:34 The patient or guardian reports cough, that is intermittent, described as mild, flu kb symptoms, low-grade fever. Onset: The symptoms/episode began/occurred last night. Severity of symptoms: At their worst the symptoms were moderate, in the emergency department the symptoms are unchanged. Modifying factors: The symptoms are alleviated by nothing, the symptoms are aggravated by nothing. Associated signs and symptoms: Pertinent positives: fever, Pertinent negatives: chest pain, diarrhea, ear ache, nausea, rhinorrhea, sore throat, vomiting. The patient has not experienced similar symptoms in the past. The patient has not recently seen a physician. Patient reports cough and fever that started last night. States his has COVID currently.. Historical: - Allergies: 20:15 No Known Allergies; ke1 - PMHx: 20:15 Diabetes - NIDDM; hemorrhoids; High Cholesterol; Hypertension; ke1 - Immunization history:: Adult Immunizations. - Social history:: Smoking status: Patient reports the use of cigarette tobacco products, denies chronic smoking, but will smoke occasionally, cigars, Patient uses. ROS: 21:34 Cardiovascular: Negative for chest pain, palpitations, and edema. kb 21:34 Constitutional: Positive for fever. 21:34 Respiratory: Positive for cough. 21:34 All other systems are negative. Exam: 21:34 Constitutional: This is a well developed, well nourished patient who is awake, alert, kb and in no acute distress. Head/Face: Normocephalic, atraumatic. ENT: Moist Mucous membranes Cardiovascular: Regular rate and rhythm with a normal S1 and S2. No gallops, murmurs, or rubs. No pulse deficits. Respiratory: Respirations even and unlabored. No increased work of breathing. Talking in full sentences Abdomen/GI: Soft, non-tender. No distention Skin: Warm, dry with normal turgor. Normal color. MS/ Extremity: Pulses equal, no cyanosis. Neurovascular intact. Full, normal range of motion. Neuro: Awake and alert, GCS 15, oriented to person, place, time, and situation. Moves all extremities. Normal gait. Psych: Awake, alert, with orientation to person, place and time. Behavior, mood, and affect are within normal limits. 21:38 ECG was reviewed by the Attending Physician. kb Vital Signs: 20:19 BP 136 / 65; Pulse 81; Resp 25; Temp 101(O); Pulse Ox 97% on R/A; Weight 90.72 kg; ke1 Height 5 ft. 10 in. (177.80 cm); Pain 0/10; 21:27 BP 146 / 60; Pulse 82; Temp 99.9(O); Pulse Ox 96% on R/A; ke1 22:27 BP 150 / 77; Pulse 79; Resp 21; Temp 98.9(O); Pulse Ox 95% on R/A; Pain 0/10; ke1 20:19 Body Mass Index 28.70 (90.72 kg, 177.80 cm) ke1 MDM: 20:16 Patient medically screened. kb 21:35 Data reviewed: vital signs, nurses notes. Data interpreted: Pulse oximetry: on room air kb is 96 %. Interpretation: normal. 22:50 Counseling: I had a detailed discussion with the patient and/or guardian regarding: the kb historical points, exam findings, and any diagnostic results supporting the discharge/admit diagnosis, lab results, radiology results, the need for outpatient follow up, a family practitioner, to return to the emergency department if symptoms worsen or persist or if there are any questions or concerns that arise at home. ED course: Pt consents to bebtelovimab injection. . 23:01 ED course: Bebtelovimab is currently unavailable. Pt educated and is ok with doing OTC kb medications. 09/22 20:17 Order name: Blood Culture Adult (2) kb 09/22 20:17 Order name: CBC with Diff; Complete Time: 21:10 kb 09/22 20:17 Order name: CMP; Complete Time: 21:27 kb 09/22 20:17 Order name: Lactate; Complete Time: 21:33 kb 09/22 20:17 Order name: Protime (+inr); Complete Time: 21:18 kb 09/22 20:17 Order name: Ptt, Activated; Complete Time: 21:18 kb 09/22 20:17 Order name: Chest Single View XRAY; Complete Time: 21:03 kb 09/22 20:17 Order name: Accucheck; Complete Time: 21:00 kb 09/22 20:17 Order name: Cardiac monitoring; Complete Time: 20:29 kb 09/22 20:17 Order name: EKG - Nurse/Tech; Complete Time: 20:38 kb 09/22 20:34 Order name: COVID-19 SARS RT PCR (Document "Date of Onset" if Symptomatic); Complete kb Time: 21:38 09/22 21:14 Order name: Glucose, Ancillary Testing; Complete Time: 21:17 EDMS 09/22 20:17 Order name: IV Saline Lock - Large Bore; Complete Time: 21:00 kb 09/22 20:17 Order name: Labs collected and sent; Complete Time: 21:00 kb 09/22 20:17 Order name: O2 Per Protocol; Complete Time: 20:29 kb 09/22 20:17 Order name: O2 Sat Monitoring; Complete Time: 20:38 kb 09/22 21:38 Order name: Vital Signs; Complete Time: 21:41 kb EC: Rate is 81 beats/min. Rhythm is regular. QRS [place] is Normal. SC interval is normal at kb 200 msec. QRS interval is normal at 86 msec. QT interval is normal at 432 msec. Administered Medications: 21:04 Drug: Tylenol 1000 mg Route: PO; ke1 22:45 Follow up: Response: Marked relief of symptoms ke1 23:04 Not Given (unavailablee): Bebtelovimab 175 mg IV at calculated rate once; as a single ke1 dose Disposition Summary: 09/22/21 23:01 Discharge Ordered Location: Home kb Condition: Stable kb Diagnosis - SARS-associated coronavirus as the cause of diseases classified elsewhere kb Followup: kb - With: Emergency Department - When: As needed - Reason: Worsening of condition Followup: kb - With: Private Physician - When: 2 - 3 days - Reason: Recheck today's complaints, Continuance of care, Re-evaluation by your physician Discharge Instructions: - Discharge Summary Sheet kb - COVID-19 kb - Viral Illness, Adult kb Forms: - Medication Reconciliation Form kb - Thank You Letter kb - Antibiotic Education kb - Prescription Opioid Use kb Signatures: Dispatcher [employer] Liza Collins, NATIONAL SALES TRAINER-C NATIONAL SALES TRAINER-Edna Baker, RN RN ke1
[2021-09-23 00:35] VITALS: BP 150/77; TEMP 98.9; O2SAT 95
--- NOTE | 2021-09-23 12:20 | EKG ---
Test Date: 2021-09-22 Test Time: 20:35:33 Route Rider Supervisor: MARTY MEASUREMENT RESULTS: Intervals: Rate: 81 VA: 200 QRSD: 86 QT: 372 QTc: 432 [place]: P: 88 VA: 200 QRS: 76 T: 89 INTERPRETIVE STATEMENTS: Normal sinus rhythm ST abnormality, possible digitalis effect Abnormal ECG Compared to ECG 02/25/2020 10:44:02 ST (T wave) deviation now present Right-axis deviation no longer present Electronically Signed On 09-23-21 12:19:54 CDT by Mike Washington
== END 2021-09-22 23:50 | disposition home or self-care (01) ==
LOC: ER 20:10
DX: U07.1 COVID-19 (principal); E11.9 Type 2 diabetes mellitus without complications; I10 Essential (primary) hypertension; F17.210 Nicotine dependence, cigarettes, uncomplicated
CPT/HCPCS: 93005; 87040 ×2; 85025; 36415; 85610; 82947; 83605; 85730; 80053; 71045; 99284; U0003